=== PATIENT | female | born 1975 | race Two or more races ===

== ENCOUNTER 2022-01-13 13:36 | Emergency (ER) | payer MEDICAID ==
[~2022-01-13] VITALS: Ht 158 cm; Wt 86.0 kg
[2022-01-13 13:38] VITALS: BP 172/91
--- NOTE | 2022-01-13 13:46 | NUR ---
C/O 8/10 SORE THROAT, HEADACHE, NAUSEA X 4 DAYS.
[2022-01-13] MEDS ORDERED: ONDA-188 PO (15:17)
[2022-01-13] MEDS ORDERED: IBUP-2218 PO (15:17)
[2022-01-13] MEDS ORDERED: BENZ1LOZ74 MM (15:18)
--- NOTE | 2022-01-13 16:23 | NUR ---
Patient discharged with v/s stable. Written and verbal after care instructions given and explained. Patient alert, oriented and verbalized understanding of instructions. Ambulatory with steady gait. All questions addressed prior to discharge. ID band removed. Patient advised to follow up with PMD. Rx of BENZOCAINE/MENTHOL, IBUPROFEN, ONDANSETRON given. Opportunity to ask questions provided and answered.
== END 2022-01-13 16:22 | disposition home or self-care (01) ==
LOC: MED 13:36
DX: J02.9 Acute pharyngitis, unspecified (principal); Z20.822 Contact with and (suspected) exposure to COVID-19; R03.0 Elevated blood-pressure reading, without diagnosis of hypertension
CPT/HCPCS: 99283